=== PATIENT | female | born 1945 | race Caucasian/White ===

== ENCOUNTER 2016-07-16 10:51 | Inpatient (IN) | payer MEDICARE, OTHER ==
[~2016-07-16] VITALS: Ht 167.6 cm; Wt 94.3 kg
[~2016-07-16 10:51] MED LIST: ASPI-496 PO; ATOR40TA78 PO; ATOR80TA75 PO; CETI10TA24 PO; CHOL200024 PO; EMPA10TA PO; INSU100C SQ-INSULIN; INSU100C5 SQ-INSULIN; INSU100V8 SQ; LISI-167 PO; METF1000 PO; METF500T4 PO; METO25TA2 PO; MIRA25TA PO; NAPR220T77 PO; PIOG15TA2 PO; SULF1TAB24 PO
[2016-07-16] MEDS ORDERED: SODIUM CHLORIDE 0.9% 1,000 ML IV ONE (11:24)
[2016-07-16] MEDS ORDERED: SODIUM CHLORIDE 0.9% 1,000ML IVBOLUS ONE ×2 (11:30→14:00)
[2016-07-16] MEDS ORDERED: ACETAMINOPHEN 325 MG TABLET PO ONE (11:30)
[2016-07-16] MEDS ORDERED: CEFTRIAXONE PMX 1GM/50ML 50 ML IVPB ONE (11:30)
[2016-07-16] MEDS ORDERED: ACETAMINOPHEN 325 MG TABLET ONE (12:29)
[2016-07-16] MEDS ORDERED: CEFTRIAXONE PMX 1GM/50ML 50 ML ONE (12:30)
[2016-07-16 12:38] LABS: ASPARTATE AMINO TRANSFERASE 26 U/L (15-37); BLOOD UREA NITROGEN 42 mg/dL (7-18)
[2016-07-16] MEDS ORDERED: ASPI-515 PO (12:41)
[2016-07-16 12:59] LABS: DIFF TOTAL CELLS COUNTED 100 CELL DIFF
[2016-07-16 13:02] LABS: VERIFY COUNTS? YES
[2016-07-16 13:03] LABS: ANISOCYTOSIS 1+; LARGE PLATELETS 1+; POLYCHROMASIA 1+
[2016-07-16 13:57] LABS: ICTOTEST NEGATIVE
[2016-07-16] MEDS ORDERED: ONDANSETRON 2MG/ML, 2ML IVP PRN (15:00)
[2016-07-16] MEDS ORDERED: CETIRIZINE 10 MG TABLET PO PRN (15:00)
[2016-07-16 15:52] VITALS: BP 119/66
[2016-07-16] MEDS: SODIUM CHLORIDE 0.9% 1,000 ML IV SCH (16:19)
[2016-07-16] MEDS ORDERED: INSULIN ASPART 100 UNITS/ML, PEN SQ-INSULIN SCH (17:00)
[2016-07-16] MEDS: HEPARIN 5,000 UNITS/ML, 1ML SQ SCH (17:15)
[2016-07-16] MEDS: PIPERACILLIN/TAZO/PMX 3.375GM 50 ML IV SCH (17:15)
[2016-07-16] MEDS: INSULIN DETEMIR 100 UNITS/ML, PEN SQ-INSULIN SCH ×2 (17:16→21:00)
[2016-07-16] MEDS: INSULIN REGULAR 100 UNITS/ML, 3ML VIAL SQ-INSULIN SCH ×2 (17:17→21:00)
[2016-07-16 20:52] VITALS: BP 126/71
[2016-07-16] MEDS: ATORVASTATIN 80 MG TABLET PO SCH (21:00)
[2016-07-16] MEDS ORDERED: ACETAMINOPHEN 650 MG SUPP PR PRN (22:30)
[2016-07-17] MEDS ORDERED: CEFTRIAXONE PMX 1GM/50ML 50 ML IV SCH (00:30)
[2016-07-17] MEDS: PIPERACILLIN/TAZO/PMX 3.375GM 50 ML IV SCH ×4 (00:32→18:19)
[2016-07-17] MEDS: SODIUM CHLORIDE 0.9% 1,000 ML IV SCH ×2 (00:33→15:18)
[2016-07-17] MEDS: HEPARIN 5,000 UNITS/ML, 1ML SQ SCH ×4 (00:33→22:51)
[2016-07-17 01:00] VITALS: BP 122/75
[2016-07-17 05:27] LABS: HEMOGLOBIN 8.4 g/dL (11.7-16.4)
[2016-07-17 05:30] LABS: ASPARTATE AMINO TRANSFERASE 40 U/L (15-37); BLOOD UREA NITROGEN 31 mg/dL (7-18)
[2016-07-17 06:01] LABS: DIFF TOTAL CELLS COUNTED 100 CELL DIFF
[2016-07-17 06:03] LABS: ANISOCYTOSIS 1+; OVALOCYTES 1+
[2016-07-17 06:04] LABS: LARGE PLATELETS 1+; VERIFY COUNTS? YES
[2016-07-17 08:11] VITALS: BP 110/70
[2016-07-17] MEDS: ASPIRIN 81 MG TABLET EC PO SCH (08:29)
[2016-07-17] MEDS: INSULIN REGULAR 100 UNITS/ML, 3ML VIAL SQ-INSULIN SCH ×4 (08:29→20:33)
[2016-07-17] MEDS: TEMPLATE NON-FORMULARY MED. (Mirabegron** (Myrbetriq**) 25 MG) PO SCH (08:30)
[2016-07-17] MEDS: FLUCONAZOLE 200 MG/100 ML 100 ML IV SCH (15:18)
[2016-07-17 15:19] VITALS: BP 99/60
[2016-07-17] MEDS: ACETAMINOPHEN 325 MG TABLET PO PRN (16:06)
[2016-07-17 19:13] VITALS: BP 102/64
[2016-07-17] MEDS: ATORVASTATIN 80 MG TABLET PO SCH (20:35)
[2016-07-18] MEDS: SODIUM CHLORIDE 0.9% 1,000 ML IV SCH ×3 (00:36→22:59)
[2016-07-18] MEDS: PIPERACILLIN/TAZO/PMX 3.375GM 50 ML IV SCH ×2 (00:36→06:14)
[2016-07-18 02:51] VITALS: BP 135/76
[2016-07-18 05:27] LABS: HEMOGLOBIN 8.8 g/dL (11.7-16.4)
[2016-07-18 05:48] LABS: BLOOD UREA NITROGEN 30 mg/dL (7-18)
[2016-07-18 05:58] LABS: DIFF TOTAL CELLS COUNTED 100 CELL DIFF
[2016-07-18 06:01] LABS: ANISOCYTOSIS 1+; LARGE PLATELETS 1+; VERIFY COUNTS? YES
[2016-07-18] MEDS: INSULIN REGULAR 100 UNITS/ML, 3ML VIAL SQ-INSULIN SCH ×4 (07:00→20:06)
[2016-07-18 07:06] VITALS: BP 120/73
[2016-07-18] MEDS: TEMPLATE NON-FORMULARY MED. (Mirabegron** (Myrbetriq**) 25 MG) PO SCH (08:09)
[2016-07-18] MEDS: HEPARIN 5,000 UNITS/ML, 1ML SQ SCH ×3 (08:09→22:59)
[2016-07-18] MEDS: ASPIRIN 81 MG TABLET EC PO SCH (08:09)
[2016-07-18] MEDS ORDERED: AMPICILLIN/SULBACTAM 3 GM in SODIUM CHLORIDE 0.9% 100 ML IV SCH (08:30)
[2016-07-18] MEDS ORDERED: MAGNESIUM HYDROXIDE 8%, 30ML UDC PO ONE (10:30)
[2016-07-18] MEDS: SENNA/DOCUSATE TABLET PO SCH (10:54)
[2016-07-18] MEDS: ACETAMINOPHEN 325 MG TABLET PO PRN (11:15)
[2016-07-18 12:49] VITALS: BP 104/64
[2016-07-18] MEDS: FLUCONAZOLE 200 MG/100 ML 100 ML IV SCH (15:25)
[2016-07-18] MEDS: AMPICILLIN/SULBACTAM 3 GM in SODIUM CHLORIDE 0.9% 100 ML IV SCH (18:47)
[2016-07-18 19:12] VITALS: BP 114/64
[2016-07-18] MEDS: ATORVASTATIN 80 MG TABLET PO SCH (20:05)
[2016-07-19] VITALS (7 sets, daily range): BP systolic 113–182; BP diastolic 68–88
[2016-07-19] MEDS: AMPICILLIN/SULBACTAM 3 GM in SODIUM CHLORIDE 0.9% 100 ML IV SCH ×2 (06:04→17:55)
[2016-07-19] MEDS: ACETAMINOPHEN 325 MG TABLET PO PRN (08:02)
[2016-07-19] MEDS: SENNA/DOCUSATE TABLET PO SCH (08:02)
[2016-07-19] MEDS: HEPARIN 5,000 UNITS/ML, 1ML SQ SCH ×2 (08:02→16:24)
[2016-07-19] MEDS: ASPIRIN 81 MG TABLET EC PO SCH (08:02)
[2016-07-19] MEDS: TEMPLATE NON-FORMULARY MED. (Mirabegron** (Myrbetriq**) 25 MG) PO SCH (08:20)
[2016-07-19] MEDS: INSULIN REGULAR 100 UNITS/ML, 3ML VIAL SQ-INSULIN SCH ×4 (08:20→20:19)
[2016-07-19 10:02] LABS: BLOOD UREA NITROGEN 21 mg/dL (7-18)
[2016-07-19 10:17] LABS: HEMOGLOBIN 7.6 g/dL (11.7-16.4)
[2016-07-19] MEDS: SODIUM CHLORIDE 0.9% 1,000 ML IV SCH (10:31)
[2016-07-19 11:43] LABS: DIFF TOTAL CELLS COUNTED 100 CELL DIFF
[2016-07-19 11:48] LABS: ANISOCYTOSIS 1+; VERIFY COUNTS? YES
[2016-07-19 11:49] LABS: HYPOCHROMIA 1+
[2016-07-19] MEDS: FLUCONAZOLE 200 MG/100 ML 100 ML IV SCH (16:24)
[2016-07-19] MEDS: METOPROLOL TARTRATE 25 MG TABLET PO SCH (17:55)
[2016-07-19] MEDS: methylPREDNISolone SOD SUCC 125 MG/2 ML IVPush SCH (17:55)
[2016-07-19] MEDS: ATORVASTATIN 80 MG TABLET PO SCH (20:19)
[2016-07-20] MEDS: methylPREDNISolone SOD SUCC 125 MG/2 ML IVPush SCH ×2 (00:51→08:13)
[2016-07-20] MEDS: HEPARIN 5,000 UNITS/ML, 1ML SQ SCH ×3 (00:51→16:36)
[2016-07-20 03:16] VITALS: BP 133/88
[2016-07-20 05:35] LABS: HEMOGLOBIN 8.1 g/dL (11.7-16.4)
[2016-07-20 05:51] LABS: BLOOD UREA NITROGEN 22 mg/dL (7-18)
[2016-07-20 05:57] LABS: DIFF TOTAL CELLS COUNTED 100 CELL DIFF
[2016-07-20 05:59] LABS: ANISOCYTOSIS 1+; VERIFY COUNTS? YES
[2016-07-20] MEDS: AMPICILLIN/SULBACTAM 3 GM in SODIUM CHLORIDE 0.9% 100 ML IV SCH ×2 (06:20→17:52)
[2016-07-20] MEDS: METOPROLOL TARTRATE 25 MG TABLET PO SCH ×2 (06:20→17:52)
[2016-07-20 07:41] VITALS: BP 137/80
[2016-07-20] MEDS: TEMPLATE NON-FORMULARY MED. (Mirabegron** (Myrbetriq**) 25 MG) PO SCH (08:11)
[2016-07-20] MEDS: SENNA/DOCUSATE TABLET PO SCH (08:13)
[2016-07-20] MEDS: ASPIRIN 81 MG TABLET EC PO SCH (08:13)
[2016-07-20] MEDS: INSULIN REGULAR 100 UNITS/ML, 3ML VIAL SQ-INSULIN SCH ×5 (08:44→21:15)
[2016-07-20] MEDS ORDERED: INSULIN ASPART 100 UNITS/ML, PEN SQ-INSULIN SCH (11:30)
[2016-07-20 13:52] VITALS: BP 135/70
[2016-07-20] MEDS: IRON SUCROSE COMPLEX 100MG/5ML IV SCH (15:21)
[2016-07-20] MEDS: FLUCONAZOLE 200 MG/100 ML 100 ML IV SCH (16:36)
[2016-07-20 19:49] VITALS: BP 132/71
[2016-07-20] MEDS: ATORVASTATIN 80 MG TABLET PO SCH (21:11)
[2016-07-20] MEDS: INSULIN DETEMIR 100 UNITS/ML, PEN SQ-INSULIN SCH (21:12)
[2016-07-21 02:30] VITALS: BP 139/70
[2016-07-21 05:42] LABS: HEMOGLOBIN 8.6 g/dL (11.7-16.4)
[2016-07-21 05:54] LABS: DIFF TOTAL CELLS COUNTED 100 CELL DIFF
[2016-07-21 05:56] LABS: ANISOCYTOSIS 1+
[2016-07-21 05:57] LABS: VERIFY COUNTS? YES
[2016-07-21 06:01] LABS: BLOOD UREA NITROGEN 26 mg/dL (7-18)
[2016-07-21] MEDS: METOPROLOL TARTRATE 25 MG TABLET PO SCH ×2 (06:23→17:02)
[2016-07-21] MEDS: AMPICILLIN/SULBACTAM 3 GM in SODIUM CHLORIDE 0.9% 100 ML IV SCH (06:23)
[2016-07-21 07:12] VITALS: BP 135/70
[2016-07-21] MEDS: SENNA/DOCUSATE TABLET PO SCH (07:39)
[2016-07-21] MEDS: predniSONE 50MG TABLET PO SCH (07:43)
[2016-07-21] MEDS: HEPARIN 5,000 UNITS/ML, 1ML SQ SCH ×3 (07:46→15:44)
[2016-07-21] MEDS: INSULIN REGULAR 100 UNITS/ML, 3ML VIAL SQ-INSULIN SCH ×4 (07:53→19:50)
[2016-07-21] MEDS: TEMPLATE NON-FORMULARY MED. (Mirabegron** (Myrbetriq**) 25 MG) PO SCH (09:00)
[2016-07-21] MEDS: ASPIRIN 81 MG TABLET EC PO SCH (09:47)
[2016-07-21] MEDS: FLUCONAZOLE 400 MG/200 ML 200 ML IV SCH (11:28)
[2016-07-21 13:13] VITALS: BP 134/93
[2016-07-21] MEDS: IRON SUCROSE COMPLEX 100MG/5ML IV SCH (15:44)
[2016-07-21 19:33] VITALS: BP 125/64
[2016-07-21] MEDS: ATORVASTATIN 80 MG TABLET PO SCH (19:49)
[2016-07-21] MEDS: INSULIN DETEMIR 100 UNITS/ML, PEN SQ-INSULIN SCH (19:50)
[2016-07-22 00:48] VITALS: BP 143/67
[2016-07-22 05:41] LABS: BLOOD UREA NITROGEN 32 mg/dL (7-18)
[2016-07-22 05:48] LABS: HEMOGLOBIN 7.8 g/dL (11.7-16.4)
[2016-07-22] MEDS: METOPROLOL TARTRATE 25 MG TABLET PO SCH ×2 (06:11→16:54)
[2016-07-22 06:20] LABS: DIFF TOTAL CELLS COUNTED 100 CELL DIFF
[2016-07-22 06:23] LABS: VERIFY COUNTS? YES
[2016-07-22 06:24] LABS: ANISOCYTOSIS 1+
[2016-07-22 07:01] VITALS: BP 134/64
[2016-07-22] MEDS: INSULIN REGULAR 100 UNITS/ML, 3ML VIAL SQ-INSULIN SCH ×4 (07:54→21:18)
[2016-07-22] MEDS: HEPARIN 5,000 UNITS/ML, 1ML SQ SCH ×4 (07:55→21:13)
[2016-07-22] MEDS: predniSONE 50MG TABLET PO SCH (07:57)
[2016-07-22] MEDS: SENNA/DOCUSATE TABLET PO SCH (08:02)
[2016-07-22] MEDS: ASPIRIN 81 MG TABLET EC PO SCH (08:03)
[2016-07-22] MEDS: TEMPLATE NON-FORMULARY MED. (Mirabegron** (Myrbetriq**) 25 MG) PO SCH (08:04)
[2016-07-22] MEDS: IRON SUCROSE COMPLEX 100MG/5ML IV SCH (09:49)
[2016-07-22] MEDS: FLUCONAZOLE 400 MG/200 ML 200 ML IV SCH (10:57)
[2016-07-22] MEDS ORDERED: MAGNESIUM HYDROXIDE 8%, 30ML UDC PO ONE (12:30)
[2016-07-22 12:57] VITALS: BP 168/75
[2016-07-22 18:39] LABS: POTASSIUM,URINE RANDOM 7 mmol/L
[2016-07-22 19:23] VITALS: BP 146/80
[2016-07-22] MEDS: ATORVASTATIN 80 MG TABLET PO SCH (21:13)
[2016-07-22] MEDS: INSULIN DETEMIR 100 UNITS/ML, PEN SQ-INSULIN SCH (21:14)
[2016-07-23 00:52] VITALS: BP 170/74
[2016-07-23] MEDS ORDERED: LABETALOL 5MG/ML, 20ML IVPush ONE (01:30)
[2016-07-23] MEDS: METOPROLOL TARTRATE 25 MG TABLET PO SCH ×2 (05:55→17:36)
[2016-07-23] MEDS: HEPARIN 5,000 UNITS/ML, 1ML SQ SCH ×3 (05:56→21:32)
[2016-07-23 07:08] VITALS: BP 151/70
[2016-07-23] MEDS: IRON SUCROSE COMPLEX 100MG/5ML IV SCH (08:32)
[2016-07-23] MEDS: SENNA/DOCUSATE TABLET PO SCH (08:32)
[2016-07-23] MEDS: ASPIRIN 81 MG TABLET EC PO SCH (08:32)
[2016-07-23] MEDS: INSULIN REGULAR 100 UNITS/ML, 3ML VIAL SQ-INSULIN SCH ×4 (08:34→20:39)
[2016-07-23] MEDS: ACETAMINOPHEN 325 MG TABLET PO PRN (08:39)
[2016-07-23] MEDS: TEMPLATE NON-FORMULARY MED. (Mirabegron** (Myrbetriq**) 25 MG) PO SCH (08:42)
[2016-07-23] MEDS ORDERED: LISINOPRIL 10 MG TABLET PO SCH (09:00)
[2016-07-23] MEDS: FLUCONAZOLE 400 MG/200 ML 200 ML IV SCH (11:19)
[2016-07-23 12:54] VITALS: BP 154/78
[2016-07-23 17:06] VITALS: BP 161/75
[2016-07-23 19:44] VITALS: BP 162/78
[2016-07-23] MEDS: ATORVASTATIN 80 MG TABLET PO SCH (20:04)
[2016-07-23] MEDS: INSULIN DETEMIR 100 UNITS/ML, PEN SQ-INSULIN SCH (20:39)
[2016-07-24 04:36] VITALS: BP 152/78
[2016-07-24] MEDS: METOPROLOL TARTRATE 25 MG TABLET PO SCH ×2 (06:45→20:03)
[2016-07-24] MEDS: HEPARIN 5,000 UNITS/ML, 1ML SQ SCH ×3 (06:45→21:31)
[2016-07-24 07:50] VITALS: BP 160/68
[2016-07-24] MEDS: ASPIRIN 81 MG TABLET EC PO SCH (08:44)
[2016-07-24] MEDS: SENNA/DOCUSATE TABLET PO SCH (08:44)
[2016-07-24] MEDS: IRON SUCROSE COMPLEX 100MG/5ML IV SCH (08:44)
[2016-07-24] MEDS: INSULIN REGULAR 100 UNITS/ML, 3ML VIAL SQ-INSULIN SCH ×4 (08:46→20:10)
[2016-07-24] MEDS: TEMPLATE NON-FORMULARY MED. (Mirabegron** (Myrbetriq**) 25 MG) PO SCH (08:48)
[2016-07-24] MEDS: LISINOPRIL 20 MG TABLET PO SCH (08:53)
[2016-07-24] MEDS: FLUCONAZOLE 400 MG/200 ML 200 ML IV SCH (10:46)
[2016-07-24 15:17] VITALS: BP 167/78
[2016-07-24] MEDS: ACETAMINOPHEN 325 MG TABLET PO PRN (16:35)
[2016-07-24] MEDS: ATORVASTATIN 80 MG TABLET PO SCH (20:03)
[2016-07-24] MEDS: INSULIN DETEMIR 100 UNITS/ML, PEN SQ-INSULIN SCH (20:10)
[2016-07-24 20:21] VITALS: BP 150/72
[2016-07-25] VITALS (9 sets, daily range): BP systolic 123–159; BP diastolic 62–78
[2016-07-25 05:29] LABS: HEMOGLOBIN 7.1 g/dL (11.7-16.4)
[2016-07-25 05:32] LABS: BLOOD UREA NITROGEN 31 mg/dL (7-18)
[2016-07-25] MEDS: HEPARIN 5,000 UNITS/ML, 1ML SQ SCH ×3 (06:00→22:00)
[2016-07-25] MEDS: METOPROLOL TARTRATE 25 MG TABLET PO SCH ×3 (06:47→22:46)
[2016-07-25] MEDS ORDERED: FUROSEMIDE 20 MG/2 ML IV ONE (07:30)
[2016-07-25] MEDS: INSULIN REGULAR 100 UNITS/ML, 3ML VIAL SQ-INSULIN SCH ×4 (07:57→22:46)
[2016-07-25] MEDS: ASPIRIN 81 MG TABLET EC PO SCH (07:58)
[2016-07-25] MEDS: TEMPLATE NON-FORMULARY MED. (Mirabegron** (Myrbetriq**) 25 MG) PO SCH (07:58)
[2016-07-25] MEDS: SENNA/DOCUSATE TABLET PO SCH (07:59)
[2016-07-25] MEDS: LISINOPRIL 20 MG TABLET PO SCH (07:59)
[2016-07-25] MEDS: ACETAMINOPHEN 325 MG TABLET PO PRN (07:59)
[2016-07-25] MEDS ORDERED: FUROSEMIDE 20 MG/2 ML ONE (12:56)
[2016-07-25] MEDS: FLUCONAZOLE 200 MG TABLET PO SCH (12:58)
[2016-07-25 17:53] LABS: HEMOGLOBIN 10.1 g/dL (11.7-16.4)
[2016-07-25 18:01] LABS: ASPARTATE AMINO TRANSFERASE 33 U/L (15-37); BLOOD UREA NITROGEN 30 mg/dL (7-18)
[2016-07-25 18:11] LABS: DIFF TOTAL CELLS COUNTED 100 CELL DIFF
[2016-07-25 18:12] LABS: VERIFY COUNTS? YES
[2016-07-25] MEDS: INSULIN DETEMIR 100 UNITS/ML, PEN SQ-INSULIN SCH (21:00)
[2016-07-25] MEDS ORDERED: PNEUMOC 13-VALENT VACC, 0.5 ML IM-VACC ONE (22:30)
[2016-07-25] MEDS: ATORVASTATIN 80 MG TABLET PO SCH (22:46)
[2016-07-26 02:45] VITALS: BP 98/61
[2016-07-26 06:38] LABS: BLOOD UREA NITROGEN 30 mg/dL (7-18)
[2016-07-26 06:51] LABS: ASPARTATE AMINO TRANSFERASE 26 U/L (15-37)
[2016-07-26 06:55] LABS: C-REACTIVE PROTEIN, QUANT > 19.00 mg/dL (0.02-0.49)
[2016-07-26] MEDS: INSULIN REGULAR 100 UNITS/ML, 3ML VIAL SQ-INSULIN SCH ×4 (07:00→21:58)
[2016-07-26 07:28] VITALS: BP 138/77
[2016-07-26 07:46] LABS: HEMOGLOBIN 8.2 g/dL (11.7-16.4)
[2016-07-26] MEDS ORDERED: FENTANYL PF 250 MCG/5ML ONE (08:24)
[2016-07-26] MEDS ORDERED: MIDAZOLAM 1 MG/ML, 2ML ONE (08:24)
[2016-07-26] MEDS ORDERED: ONDANSETRON 2MG/ML, 2ML ONE (08:47)
[2016-07-26] MEDS ORDERED: METOCLOPRAMIDE 5 MG/ML, 2ML ONE (08:47)
[2016-07-26] MEDS ORDERED: PROPOFOL 10 MG/ML, 20ML ONE (08:47)
[2016-07-26] MEDS: FLUCONAZOLE 200 MG TABLET PO SCH ×2 (09:00→13:07)
[2016-07-26] MEDS: TEMPLATE NON-FORMULARY MED. (Mirabegron** (Myrbetriq**) 25 MG) PO SCH (09:00)
[2016-07-26] MEDS: SENNA/DOCUSATE TABLET PO SCH (09:00)
[2016-07-26] MEDS ORDERED: LABETALOL 5MG/ML, 20ML IV PRN (09:30)
[2016-07-26] MEDS ORDERED: PROMETHAZINE 25 MG/ML, 1ML IV PRN (09:30)
[2016-07-26] MEDS ORDERED: FENTANYL PF 100 MCG/2ML IV PRN (09:30)
[2016-07-26] MEDS ORDERED: OXYcodone 5 MG/5 ML ORAL.SOL UDC PO PRN (09:30)
[2016-07-26] MEDS ORDERED: ACETAMINOPHEN 325 MG TABLET PO PRN (09:30)
[2016-07-26] MEDS ORDERED: ONDANSETRON 2MG/ML, 2ML IVPush PRN (09:30)
[2016-07-26] MEDS ORDERED: MEPERIDINE/PF 25MG/0.5ML IVPush PRN (09:30)
[2016-07-26] MEDS ORDERED: HYDROmorphone 1 MG/ML, 1ML IV PRN (09:30)
[2016-07-26] MEDS ORDERED: hydrALAzine 20 MG/ML, 1ML IV PRN (09:30)
[2016-07-26 10:38] VITALS: BP 125/73
[2016-07-26] MEDS ORDERED: INSULIN REGULAR 100 UNITS/ML, 3ML VIAL SQ-INSULIN SCH (11:00)
[2016-07-26 11:13] VITALS: BP 120/73
[2016-07-26] MEDS: LISINOPRIL 20 MG TABLET PO SCH (12:49)
[2016-07-26] MEDS: METOPROLOL TARTRATE 25 MG TABLET PO SCH ×2 (12:50→17:34)
[2016-07-26] MEDS: ASPIRIN 81 MG TABLET EC PO SCH (12:50)
[2016-07-26 13:57] VITALS: BP 113/69
[2016-07-26 20:20] VITALS: BP 128/69
[2016-07-26] MEDS: INSULIN DETEMIR 100 UNITS/ML, PEN SQ-INSULIN SCH (21:54)
[2016-07-26] MEDS: ATORVASTATIN 80 MG TABLET PO SCH (21:58)
[2016-07-27 03:10] VITALS: BP 126/55
[2016-07-27] MEDS: METOPROLOL TARTRATE 25 MG TABLET PO SCH ×2 (06:26→17:22)
[2016-07-27 06:31] LABS: HEMOGLOBIN 7.6 g/dL (11.7-16.4)
[2016-07-27 06:36] LABS: ASPARTATE AMINO TRANSFERASE 25 U/L (15-37); BLOOD UREA NITROGEN 22 mg/dL (7-18)
[2016-07-27] MEDS: INSULIN REGULAR 100 UNITS/ML, 3ML VIAL SQ-INSULIN SCH ×4 (07:00→20:57)
[2016-07-27] MEDS ORDERED: MAGNESIUM SULFATE PMX 2GM/50ML 50 ML IV ONE (08:00)
[2016-07-27 08:20] VITALS: BP 123/58
[2016-07-27] MEDS: ASPIRIN 81 MG TABLET EC PO SCH (08:45)
[2016-07-27] MEDS: SENNA/DOCUSATE TABLET PO SCH (08:45)
[2016-07-27] MEDS: FLUCONAZOLE 200 MG TABLET PO SCH (08:45)
[2016-07-27] MEDS: LISINOPRIL 20 MG TABLET PO SCH (08:45)
[2016-07-27] MEDS: TEMPLATE NON-FORMULARY MED. (Mirabegron** (Myrbetriq**) 25 MG) PO SCH (08:46)
[2016-07-27] MEDS ORDERED: LIDOCAINE-MPF 2% ,5ML ONE (10:27)
[2016-07-27 14:50] VITALS: BP 151/83
[2016-07-27 16:21] VITALS: BP 155/77
[2016-07-27 19:19] VITALS: BP 161/82
[2016-07-27] MEDS: INSULIN DETEMIR 100 UNITS/ML, PEN SQ-INSULIN SCH (20:56)
[2016-07-27] MEDS: ATORVASTATIN 80 MG TABLET PO SCH (20:57)
[2016-07-27] MEDS: MORPHINE SULFATE 4 MG/ML, 1ML IVPush PRN (22:06)
[2016-07-28 01:56] VITALS: BP 142/68
[2016-07-28 05:20] LABS: BLOOD UREA NITROGEN 16 mg/dL (7-18)
[2016-07-28 05:20] LABS: HEMOGLOBIN 7.6 g/dL (11.7-16.4)
[2016-07-28] MEDS: METOPROLOL TARTRATE 25 MG TABLET PO SCH ×2 (05:57→17:41)
[2016-07-28 06:58] VITALS: BP 138/78
[2016-07-28] MEDS: INSULIN REGULAR 100 UNITS/ML, 3ML VIAL SQ-INSULIN SCH ×4 (07:00→21:24)
[2016-07-28] MEDS: SENNA/DOCUSATE TABLET PO SCH (07:47)
[2016-07-28] MEDS: ASPIRIN 81 MG TABLET EC PO SCH (07:47)
[2016-07-28] MEDS: MORPHINE SULFATE 4 MG/ML, 1ML IVPush PRN (07:47)
[2016-07-28] MEDS: LISINOPRIL 20 MG TABLET PO SCH (07:48)
[2016-07-28] MEDS: TEMPLATE NON-FORMULARY MED. (Mirabegron** (Myrbetriq**) 25 MG) PO SCH (07:48)
[2016-07-28] MEDS ORDERED: FLUCONAZOLE 200 MG TABLET PO SCH (09:00)
[2016-07-28 14:03] VITALS: BP 145/77
[2016-07-28 19:03] VITALS: BP 132/66
[2016-07-28] MEDS: ATORVASTATIN 80 MG TABLET PO SCH (20:42)
[2016-07-28] MEDS: INSULIN DETEMIR 100 UNITS/ML, PEN SQ-INSULIN SCH (21:25)
[2016-07-29] MEDS: MORPHINE SULFATE 4 MG/ML, 1ML IVPush PRN ×2 (01:23→11:43)
[2016-07-29 01:33] VITALS: BP 154/70
[2016-07-29 05:54] LABS: HEMOGLOBIN 7.3 g/dL (11.7-16.4)
[2016-07-29 06:03] LABS: ASPARTATE AMINO TRANSFERASE 24 U/L (15-37); BLOOD UREA NITROGEN 14 mg/dL (7-18)
[2016-07-29 06:30] VITALS: BP 147/75
[2016-07-29] MEDS: METOPROLOL TARTRATE 25 MG TABLET PO SCH ×2 (06:34→17:59)
[2016-07-29] MEDS: INSULIN REGULAR 100 UNITS/ML, 3ML VIAL SQ-INSULIN SCH ×4 (07:31→20:36)
[2016-07-29] MEDS: ASPIRIN 81 MG TABLET EC PO SCH (09:15)
[2016-07-29] MEDS: LISINOPRIL 20 MG TABLET PO SCH (09:16)
[2016-07-29] MEDS: TEMPLATE NON-FORMULARY MED. (Mirabegron** (Myrbetriq**) 25 MG) PO SCH (09:16)
[2016-07-29] MEDS: SENNA/DOCUSATE TABLET PO SCH (09:16)
[2016-07-29] MEDS: FLUCONAZOLE 200 MG TABLET PO SCH (09:16)
[2016-07-29 13:18] VITALS: BP 150/66
[2016-07-29 20:06] VITALS: BP 155/73
[2016-07-29] MEDS: ATORVASTATIN 80 MG TABLET PO SCH (20:22)
[2016-07-29] MEDS: INSULIN DETEMIR 100 UNITS/ML, PEN SQ-INSULIN SCH (20:36)
[2016-07-30 02:19] VITALS: BP 156/77
[2016-07-30] MEDS: MORPHINE SULFATE 4 MG/ML, 1ML IVPush PRN ×2 (03:52→10:22)
[2016-07-30 06:04] LABS: HEMOGLOBIN 7.4 g/dL (11.7-16.4)
[2016-07-30] MEDS: METOPROLOL TARTRATE 25 MG TABLET PO SCH ×2 (06:49→18:04)
[2016-07-30 06:50] VITALS: BP 145/73
[2016-07-30] MEDS: INSULIN REGULAR 100 UNITS/ML, 3ML VIAL SQ-INSULIN SCH ×4 (07:42→20:28)
[2016-07-30] MEDS: FLUCONAZOLE 200 MG TABLET PO SCH (08:29)
[2016-07-30] MEDS: TEMPLATE NON-FORMULARY MED. (Mirabegron** (Myrbetriq**) 25 MG) PO SCH (08:30)
[2016-07-30] MEDS: ASPIRIN 81 MG TABLET EC PO SCH (08:30)
[2016-07-30] MEDS: LISINOPRIL 20 MG TABLET PO SCH (08:30)
[2016-07-30] MEDS: SENNA/DOCUSATE TABLET PO SCH (08:30)
[2016-07-30 13:27] VITALS: BP 145/84
[2016-07-30 20:01] VITALS: BP 155/76
[2016-07-30] MEDS: ATORVASTATIN 80 MG TABLET PO SCH (20:19)
[2016-07-30] MEDS: INSULIN DETEMIR 100 UNITS/ML, PEN SQ-INSULIN SCH (20:28)
[2016-07-31 01:26] VITALS: BP 149/75
[2016-07-31] MEDS: MORPHINE SULFATE 4 MG/ML, 1ML IVPush PRN (02:20)
[2016-07-31] MEDS: METOPROLOL TARTRATE 25 MG TABLET PO SCH (05:39)
[2016-07-31 06:07] LABS: HEMOGLOBIN 7.9 g/dL (11.7-16.4)
[2016-07-31 06:43] LABS: BLOOD UREA NITROGEN 14 mg/dL (7-18)
[2016-07-31] MEDS: INSULIN REGULAR 100 UNITS/ML, 3ML VIAL SQ-INSULIN SCH ×3 (08:22→17:01)
[2016-07-31] MEDS: TEMPLATE NON-FORMULARY MED. (Mirabegron** (Myrbetriq**) 25 MG) PO SCH (08:22)
[2016-07-31 08:23] VITALS: BP 148/94
[2016-07-31] MEDS: SENNA/DOCUSATE TABLET PO SCH (08:23)
[2016-07-31] MEDS: FLUCONAZOLE 200 MG TABLET PO SCH (08:23)
[2016-07-31] MEDS: LISINOPRIL 20 MG TABLET PO SCH (08:23)
[2016-07-31] MEDS: ASPIRIN 81 MG TABLET EC PO SCH (08:23)
[2016-07-31] MEDS ORDERED: LISI-170 PO (13:18)
[2016-07-31] MEDS ORDERED: ASPI-621 PO (13:18)
[2016-07-31] MEDS ORDERED: FLUC200T PO (13:18)
[2016-07-31 16:18] VITALS: BP 151/76
[2016-08-04] MEDS ORDERED: FLUC200T4 PO (10:15)
[2016-08-04] MEDS ORDERED: LISI-170 PO (10:15)
== END 2016-07-31 18:45 | DRG 871 ==
LOC: ED 12:50 → EDIP 14:43 → 3NE 15:48 → 5SO 07-25 18:30 → 3NE 07-27 16:12
PROVIDERS: ADMIT Hospitalist; ATTEND Hospitalist
PROC: 0T9B70Z Drainage of Bladder with Drainage Device, Via Natural or Artificial Opening (ICD-10-PCS; 2016-07-16)
PROC: 30233N1 Transfusion of Nonautologous Red Blood Cells into Peripheral Vein, Percutaneous Approach (ICD-10-PCS; 2016-07-25)
PROC: 0T768DZ Dilation of Right Ureter with Intraluminal Device, Via Natural or Artificial Opening Endoscopic (ICD-10-PCS; principal; 2016-07-26 08:30)
DX: B37.7 Candidal sepsis (principal); G93.41 Metabolic encephalopathy; N10 Acute pyelonephritis; E87.1 Hypo-osmolality and hyponatremia; E87.2 Acidosis; N13.6 Pyonephrosis; N20.1 Calculus of ureter; B49 Unspecified mycosis; N20.2 Calculus of kidney with calculus of ureter; N17.9 Acute kidney failure, unspecified; N12 Tubulo-interstitial nephritis, not specified as acute or chronic; D62 Acute posthemorrhagic anemia; B37.49 Other urogenital candidiasis; I10 Essential (primary) hypertension; E78.5 Hyperlipidemia, unspecified; D50.9 Iron deficiency anemia, unspecified; R32 Unspecified urinary incontinence; N20.0 Calculus of kidney; E11.65 Type 2 diabetes mellitus with hyperglycemia; R63.0 Anorexia; R65.20 Severe sepsis without septic shock; I25.10 Atherosclerotic heart disease of native coronary artery without angina pectoris; Z96.659 Presence of unspecified artificial knee joint; G89.29 Other chronic pain; M19.90 Unspecified osteoarthritis, unspecified site; J30.2 Other seasonal allergic rhinitis; S20.211A Contusion of right front wall of thorax, initial encounter; D53.9 Nutritional anemia, unspecified; I27.2 Other secondary pulmonary hypertension; Z90.710 Acquired absence of both cervix and uterus; Z79.4 Long term (current) use of insulin
CPT/HCPCS: 36415; 70450; 71010; 71250; 74000; 74176; 76000; 76770; 80048; 80053; 80061; 80076; 81001; 82436; 82570; 82728; 82962; 83036; 83540; 83550; 83605; 83735; 84100; 84133; 84145; 84300; 84439; 84443; 85025; 85045; 85610; 85651; 85730; 86078; 86140; 86850; 86900; 86923; 87040; 87086; 87106; 87186; 93005; 93306; 96365; 96366; J0295; J0696; J1450; J1644; J1756; J1815; J2250; J2405; J2543; J2704; J3010; J3490; C1769; C2617; J1940; J2765; J2930; J3475; J7030; J7512; P9016

== ENCOUNTER 2016-12-19 08:53 | Inpatient (IN) | payer MEDICARE, OTHER ==
[~2016-12-19] VITALS: Ht 167.6 cm; Wt 72.9 kg
[~2016-12-19 08:53] MED LIST changes: +ASPI-515 PO; +ASPI-621 PO; +CEPH-368 PO; +FLUC200T PO; +FLUC200T4 PO; +LISI-170 PO
[2016-12-19] MEDS ORDERED: ACETAMINOPHEN 500 MG TABLET PO ONE (09:30)
[2016-12-19] MEDS ORDERED: SODIUM CHLORIDE 0.9% 1,000ML IVBOLUS ONE ×3 (09:30→23:30)
[2016-12-19] MEDS ORDERED: CEFTRIAXONE PMX 1GM/50ML 50 ML IVPB ONE (09:30)
[2016-12-19 09:57] LABS: HEMATOCRIT 26.4 % (34.6-47.8); HEMOGLOBIN 8.8 g/dL (11.7-16.4); WHITE BLOOD COUNT 15.3 x10^3/uL (3.4-10)
[2016-12-19 09:58] LABS: PH, VENOUS 7.295 pH (7.320-7.420)
[2016-12-19 10:02] LABS: FIO2 ROOM AIR %
[2016-12-19 10:10] LABS: BLOOD UREA NITROGEN 38 mg/dL (7-18)
[2016-12-19 10:20] LABS: ASPARTATE AMINO TRANSFERASE 5 U/L (15-37)
[2016-12-19] MEDS ORDERED: CEFTRIAXONE PMX 1GM/50ML 50 ML ONE (10:23)
[2016-12-19] MEDS ORDERED: REGULAR INSULIN 62.5 UNITS in SODIUM CHLORIDE 0.9% 249.375 ML IV PRN (10:26)
[2016-12-19] MEDS ORDERED: ACETAMINOPHEN 500 MG TABLET ONE (10:31)
[2016-12-19] MEDS ORDERED: SODIUM CHLORIDE 0.9%, 500ML IVBOLUS ONE (11:30)
[2016-12-19] MEDS ORDERED: SODIUM CHLORIDE 0.9% 1,000 ML IV ONE (12:30)
[2016-12-19] MEDS ORDERED: INSULIN REGULAR 100 UNITS/ML, 3ML VIAL IVPush ONE (12:30)
[2016-12-19] MEDS ORDERED: MIRA25TA PO (12:51)
[2016-12-19] MEDS ORDERED: METF500T4 PO (12:51)
[2016-12-19 14:00] VITALS: BP 90/55
[2016-12-19] MEDS ORDERED: DEXTROSE 4 GM TAB.CHEW PO PRN (15:00)
[2016-12-19] MEDS ORDERED: GLUCAGON 1 MG IM PRN (15:00)
[2016-12-19] MEDS ORDERED: DEXTROSE 50%, 50ML SYRINGE IVPush PRN (15:00)
[2016-12-19] MEDS ORDERED: SODIUM CHLORIDE 0.9% 1,000 ML IV SCH (15:19)
[2016-12-19] MEDS ORDERED: BISACODYL 10 MG SUPP PR PRN (15:30)
[2016-12-19] MEDS ORDERED: DOCUSATE 100 MG CAPSULE PO PRN (15:30)
[2016-12-19] MEDS ORDERED: POLYETHYLENE GLYCOL 17 GM PACKET PO PRN (15:30)
[2016-12-19 15:39] VITALS: BP 117/81
[2016-12-19] MEDS ORDERED: CEFTRIAXONE PMX 1GM/50ML 50 ML IV SCH (16:00)
[2016-12-19] MEDS ORDERED: VANCOMYCIN PER PHARMACY MC PRN ×2 (16:00→16:30)
[2016-12-19] MEDS ORDERED: PIPERACILLIN/TAZO/PMX 3.375GM 50 ML IV SCH (16:00)
[2016-12-19] MEDS ORDERED: CEFTAROLINE 400 MG in SODIUM CHLORIDE 0.9% 100 ML IV SCH (16:00)
[2016-12-19] MEDS: INSULIN ASPART 100 UNITS/ML, PEN SQ-INSULIN SCH ×3 (16:22→23:26)
[2016-12-19] MEDS: HEPARIN 5,000 UNITS/ML, 1ML SQ SCH (16:23)
[2016-12-19 16:27] LABS: IS PT STATUS REG ER OR PRE ER? NO
[2016-12-19] MEDS ORDERED: PHARMACOKINETIC CONSULTATION MC ONE (17:00)
[2016-12-19] MEDS ORDERED: VANCOMYCIN PMX 1GM/200ML 200 ML IVPB SCH ×2 (17:00)
[2016-12-19] MEDS ORDERED: PHARMACOKINETIC MONITORING MC PRN (17:00)
[2016-12-19 17:40] VITALS: BP 152/84
[2016-12-19] MEDS ORDERED: ACETAMINOPHEN 650 MG SUPP ONE (18:36)
[2016-12-19] MEDS ORDERED: ONDANSETRON 2MG/ML, 2ML ONE (18:53)
[2016-12-19] MEDS ORDERED: ACETAMINOPHEN 650 MG SUPP PR ONE (19:00)
[2016-12-19] MEDS ORDERED: ONDANSETRON 2MG/ML, 2ML IVPush PRN (19:00)
[2016-12-19 19:32] LABS: BLOOD UREA NITROGEN 37 mg/dL (7-18)
[2016-12-19 19:35] LABS: ASPARTATE AMINO TRANSFERASE 10 U/L (15-37)
[2016-12-19 19:45] LABS: HEMATOCRIT 25.6 % (34.6-47.8); HEMOGLOBIN 8.4 g/dL (11.7-16.4); WHITE BLOOD COUNT 10.6 x10^3/uL (3.4-10)
[2016-12-19 19:46] LABS: DIFF TOTAL CELLS COUNTED 100 CELL DIFF
[2016-12-19] MEDS: PIPERACILLIN/TAZO/PMX 3.375GM 50 ML IV SCH (19:50)
[2016-12-19] MEDS: SODIUM CHLORIDE FLUSH 10ML SYR IVF SCH (19:51)
[2016-12-19 20:14] LABS: ROULEAUX 2+
[2016-12-19 20:15] LABS: VERIFY COUNTS? YES
[2016-12-19 23:29] LABS: BLOOD UREA NITROGEN 37 mg/dL (7-18)
[2016-12-19 23:35] LABS: IS PT STATUS REG ER OR PRE ER? NO
[2016-12-20] MEDS: HEPARIN 5,000 UNITS/ML, 1ML SQ SCH ×4 (00:12→22:32)
[2016-12-20] MEDS: PHENYLEPHRINE 20 MG in SODIUM CHLORIDE 0.9% 248 ML IV PRN ×2 (00:39→06:03)
[2016-12-20] MEDS: INSULIN ASPART 100 UNITS/ML, PEN SQ-INSULIN SCH ×6 (03:22→19:59)
[2016-12-20] MEDS: PIPERACILLIN/TAZO/PMX 3.375GM 50 ML IV SCH ×3 (03:22→19:54)
[2016-12-20] MEDS: SODIUM CHLORIDE 0.9% 1,000 ML IV SCH ×4 (03:23→23:11)
[2016-12-20 04:16] LABS: HEMOGLOBIN 7.3 g/dL (11.7-16.4); WHITE BLOOD COUNT 16.3 x10^3/uL (3.4-10)
[2016-12-20 04:18] LABS: HEMATOCRIT 22.4 % (34.6-47.8)
[2016-12-20 04:28] LABS: ASPARTATE AMINO TRANSFERASE 12 U/L (15-37); BLOOD UREA NITROGEN 29 mg/dL (7-18)
[2016-12-20 04:33] LABS: IS PT STATUS REG ER OR PRE ER? NO
[2016-12-20 06:10] VITALS: BP 123/36
[2016-12-20] MEDS: SODIUM CHLORIDE FLUSH 10ML SYR IVF SCH ×2 (08:32→22:33)
[2016-12-20] MEDS: CHOLECALCIFEROL 1,000 UNIT TABLET PO SCH (08:33)
[2016-12-20] MEDS ORDERED: ASPIRIN 81 MG TABLET EC PO SCH (09:00)
[2016-12-20] MEDS ORDERED: CEFTRIAXONE PMX 1GM/50ML 50 ML IV SCH (10:00)
[2016-12-20] MEDS ORDERED: NOREPINEPHRINE 4 MG in SODIUM CHLORIDE 0.9% 246 ML IV PRN (11:00)
[2016-12-20] MEDS ORDERED: SODIUM CHLORIDE 0.9% 500 ML IV ONE ×2 (11:00→11:19)
[2016-12-20] MEDS ORDERED: SODIUM CHLORIDE 0.9% 1,000 ML IV SCH (15:19)
[2016-12-20] MEDS: ACETAMINOPHEN 325 MG TABLET PO PRN (19:54)
[2016-12-21] MEDS: PIPERACILLIN/TAZO/PMX 3.375GM 50 ML IV SCH (04:02)
[2016-12-21 04:32] LABS: HEMATOCRIT 23.2 % (34.6-47.8); HEMOGLOBIN 7.7 g/dL (11.7-16.4); WHITE BLOOD COUNT 9.9 x10^3/uL (3.4-10)
[2016-12-21 04:42] LABS: BLOOD UREA NITROGEN 22 mg/dL (7-18)
[2016-12-21] MEDS: HEPARIN 5,000 UNITS/ML, 1ML SQ SCH ×3 (05:49→23:03)
[2016-12-21] MEDS: SODIUM CHLORIDE 0.9% 1,000 ML IV SCH ×2 (05:55→18:21)
[2016-12-21 06:00] VITALS: BP 116/52
[2016-12-21] MEDS: CEFTRIAXONE PMX 1GM/50ML 50 ML IV SCH (08:08)
[2016-12-21] MEDS: ASPIRIN 81 MG TABLET EC PO SCH (08:08)
[2016-12-21] MEDS: CHOLECALCIFEROL 1,000 UNIT TABLET PO SCH (08:08)
[2016-12-21] MEDS: INSULIN ASPART 100 UNITS/ML, PEN SQ-INSULIN SCH ×4 (08:09→23:02)
[2016-12-21] MEDS: SODIUM CHLORIDE FLUSH 10ML SYR IVF SCH ×2 (08:09→21:00)
[2016-12-21 15:45] VITALS: BP 142/77
[2016-12-21] MEDS ORDERED: VANCOMYCIN 1,200 MG in SODIUM CHLORIDE 0.9% 250 ML IVPB SCH (17:00)
[2016-12-21 20:17] VITALS: BP 133/66
[2016-12-21] MEDS: ACETAMINOPHEN 325 MG TABLET PO PRN (20:20)
[2016-12-22 01:31] VITALS: BP 136/74
[2016-12-22] MEDS: SODIUM CHLORIDE 0.9% 1,000 ML IV SCH ×3 (04:53→23:23)
[2016-12-22 06:31] LABS: BLOOD UREA NITROGEN 15 mg/dL (7-18)
[2016-12-22] MEDS: HEPARIN 5,000 UNITS/ML, 1ML SQ SCH ×3 (06:55→23:22)
[2016-12-22 07:26] LABS: HEMOGLOBIN 8.8 g/dL (11.7-16.4)
[2016-12-22 07:31] LABS: DIFF TOTAL CELLS COUNTED 100 CELL DIFF; WHITE BLOOD COUNT 9.2 x10^3/uL (3.4-10)
[2016-12-22 07:35] LABS: ANISOCYTOSIS 1+; VERIFY COUNTS? YES
[2016-12-22 07:36] LABS: HYPOCHROMIA 1+
[2016-12-22 07:55] VITALS: BP 134/80
[2016-12-22] MEDS: CEFTRIAXONE PMX 1GM/50ML 50 ML IV SCH (08:21)
[2016-12-22] MEDS: INSULIN ASPART 100 UNITS/ML, PEN SQ-INSULIN SCH ×4 (08:22→21:10)
[2016-12-22] MEDS: SODIUM CHLORIDE FLUSH 10ML SYR IVF SCH ×3 (08:22→23:22)
[2016-12-22] MEDS: ASPIRIN 81 MG TABLET EC PO SCH (08:22)
[2016-12-22] MEDS: CHOLECALCIFEROL 1,000 UNIT TABLET PO SCH (08:23)
[2016-12-22 14:40] VITALS: BP 146/70
[2016-12-22] MEDS ORDERED: BISACODYL 5 MG EC TABLET PO PRN (15:00)
[2016-12-22 18:52] VITALS: BP 155/80
[2016-12-23 02:16] VITALS: BP 132/74
[2016-12-23] MEDS: HEPARIN 5,000 UNITS/ML, 1ML SQ SCH ×2 (06:31→16:49)
[2016-12-23 06:50] VITALS: BP 157/83
[2016-12-23 07:13] LABS: ASPARTATE AMINO TRANSFERASE 11 U/L (15-37); BLOOD UREA NITROGEN 13 mg/dL (7-18)
[2016-12-23 07:14] LABS: HEMATOCRIT 23.5 % (34.6-47.8); HEMOGLOBIN 7.9 g/dL (11.7-16.4)
[2016-12-23] MEDS: CEFTRIAXONE PMX 1GM/50ML 50 ML IV SCH (08:08)
[2016-12-23] MEDS: INSULIN ASPART 100 UNITS/ML, PEN SQ-INSULIN SCH ×4 (08:08→21:42)
[2016-12-23] MEDS: CHOLECALCIFEROL 1,000 UNIT TABLET PO SCH (09:00)
[2016-12-23] MEDS: ASPIRIN 81 MG TABLET EC PO SCH (09:00)
[2016-12-23] MEDS: SODIUM CHLORIDE FLUSH 10ML SYR IVF SCH ×2 (09:00→21:38)
[2016-12-23] MEDS: SODIUM CHLORIDE 0.9% 1,000 ML IV SCH ×2 (10:20→21:37)
[2016-12-23 14:14] VITALS: BP 153/79
[2016-12-23 20:03] VITALS: BP 152/80
[2016-12-23] MEDS: INSULIN DETEMIR 100 UNITS/ML, PEN SQ-INSULIN SCH (21:40)
[2016-12-24 01:32] VITALS: BP 149/78
[2016-12-24] MEDS: HEPARIN 5,000 UNITS/ML, 1ML SQ SCH ×3 (01:32→16:39)
[2016-12-24 04:57] LABS: HEMATOCRIT 24.1 % (34.6-47.8); WHITE BLOOD COUNT 7.7 x10^3/uL (3.4-10)
[2016-12-24 05:05] LABS: BLOOD UREA NITROGEN 15 mg/dL (7-18)
[2016-12-24] MEDS: SODIUM CHLORIDE 0.9% 1,000 ML IV SCH (06:28)
[2016-12-24] MEDS: CEFTRIAXONE PMX 1GM/50ML 50 ML IV SCH (08:29)
[2016-12-24] MEDS: ASPIRIN 81 MG TABLET EC PO SCH (08:30)
[2016-12-24] MEDS: CHOLECALCIFEROL 1,000 UNIT TABLET PO SCH (08:31)
[2016-12-24] MEDS: INSULIN DETEMIR 100 UNITS/ML, PEN SQ-INSULIN SCH (08:40)
[2016-12-24] MEDS: SODIUM CHLORIDE FLUSH 10ML SYR IVF SCH ×2 (08:41→21:36)
[2016-12-24] MEDS: INSULIN ASPART 100 UNITS/ML, PEN SQ-INSULIN SCH ×4 (08:41→21:34)
[2016-12-24 08:45] VITALS: BP 176/77
[2016-12-24] MEDS ORDERED: REGADENOSON 0.4 MG/5 ML SYRINGE ONE (08:48)
[2016-12-24 15:56] VITALS: BP 163/76
[2016-12-24] MEDS ORDERED: ONDANSETRON 2MG/ML, 2ML IVPush PRN (19:30)
[2016-12-24] MEDS ORDERED: BISACODYL 10 MG SUPP PR PRN (19:30)
[2016-12-24] MEDS ORDERED: DEXTROSE 50%, 50ML SYRINGE IVPush PRN (19:30)
[2016-12-24] MEDS ORDERED: GLUCAGON 1 MG IM PRN (19:30)
[2016-12-24] MEDS ORDERED: SODIUM CHLORIDE 0.9% 1,000 ML IV SCH (19:30)
[2016-12-24] MEDS ORDERED: DEXTROSE 4 GM TAB.CHEW PO PRN (19:30)
[2016-12-24 19:58] VITALS: BP 143/78
[2016-12-24 19:59] VITALS: BP 143/78
[2016-12-25] MEDS: HEPARIN 5,000 UNITS/ML, 1ML SQ SCH ×3 (01:14→17:50)
[2016-12-25 01:18] VITALS: BP 159/75
[2016-12-25 05:22] LABS: HEMATOCRIT 23.2 % (34.6-47.8); HEMOGLOBIN 7.7 g/dL (11.7-16.4); WHITE BLOOD COUNT 8.1 x10^3/uL (3.4-10)
[2016-12-25 05:46] LABS: BLOOD UREA NITROGEN 16 mg/dL (7-18)
[2016-12-25] MEDS: INSULIN ASPART 100 UNITS/ML, PEN SQ-INSULIN SCH ×4 (07:27→21:34)
[2016-12-25 08:04] VITALS: BP 165/79
[2016-12-25] MEDS: CEFTRIAXONE PMX 1GM/50ML 50 ML IV SCH (08:06)
[2016-12-25] MEDS: CHOLECALCIFEROL 1,000 UNIT TABLET PO SCH (09:13)
[2016-12-25] MEDS: ASPIRIN 81 MG TABLET EC PO SCH (09:13)
[2016-12-25] MEDS: INSULIN DETEMIR 100 UNITS/ML, PEN SQ-INSULIN SCH (09:14)
[2016-12-25] MEDS: SODIUM CHLORIDE FLUSH 10ML SYR IVF SCH ×2 (09:15→21:00)
[2016-12-25 13:56] VITALS: BP 126/74
[2016-12-25 20:28] VITALS: BP 151/79
[2016-12-26 02:55] VITALS: BP 157/79
[2016-12-26] MEDS: CEFTRIAXONE PMX 1GM/50ML 50 ML IV SCH (06:17)
[2016-12-26] MEDS: HEPARIN 5,000 UNITS/ML, 1ML SQ SCH ×3 (06:18→20:53)
[2016-12-26 07:34] VITALS: BP 165/76
[2016-12-26] MEDS: ASPIRIN 81 MG TABLET EC PO SCH (08:03)
[2016-12-26] MEDS: CHOLECALCIFEROL 1,000 UNIT TABLET PO SCH (08:03)
[2016-12-26] MEDS: SODIUM CHLORIDE FLUSH 10ML SYR IVF SCH ×2 (08:03→20:53)
[2016-12-26] MEDS: INSULIN DETEMIR 100 UNITS/ML, PEN SQ-INSULIN SCH (08:04)
[2016-12-26] MEDS: INSULIN ASPART 100 UNITS/ML, PEN SQ-INSULIN SCH ×4 (08:04→20:53)
[2016-12-26 14:03] VITALS: BP 136/71
[2016-12-26 20:00] VITALS: BP 163/75
[2016-12-27 04:49] VITALS: BP 131/73
[2016-12-27] MEDS: HEPARIN 5,000 UNITS/ML, 1ML SQ SCH ×2 (04:49→15:03)
[2016-12-27 05:52] LABS: HEMATOCRIT 23.3 % (34.6-47.8); HEMOGLOBIN 7.7 g/dL (11.7-16.4); WHITE BLOOD COUNT 7.8 x10^3/uL (3.4-10)
[2016-12-27 06:04] LABS: BLOOD UREA NITROGEN 17 mg/dL (7-18)
[2016-12-27] MEDS: CEFTRIAXONE PMX 1GM/50ML 50 ML IV SCH (06:38)
[2016-12-27 07:38] VITALS: BP 135/68
[2016-12-27] MEDS: SODIUM CHLORIDE FLUSH 10ML SYR IVF SCH (07:54)
[2016-12-27] MEDS: ASPIRIN 81 MG TABLET EC PO SCH (07:54)
[2016-12-27] MEDS: CHOLECALCIFEROL 1,000 UNIT TABLET PO SCH (07:54)
[2016-12-27] MEDS: INSULIN DETEMIR 100 UNITS/ML, PEN SQ-INSULIN SCH (07:55)
[2016-12-27] MEDS: INSULIN ASPART 100 UNITS/ML, PEN SQ-INSULIN SCH ×3 (07:56→15:50)
[2016-12-27 13:35] VITALS: BP 130/65
[2016-12-27] MEDS ORDERED: FLUCONAZOLE 200 MG TABLET PO SCH (14:30)
[2016-12-27] MEDS ORDERED: CEFT1FRO2 IV (14:38)
[2016-12-27] MEDS ORDERED: FLUC200T PO (14:38)
== END 2016-12-27 16:05 | disposition home health service (06) | DRG 871 ==
LOC: ED 11:12 → EDIP 11:13 → ED 11:30 → 4WST 13:27 → CCU 18:44 → 4NOR 12-21 15:56
PROVIDERS: ADMIT Internal Medicine; ATTEND Family Medicine
PROC: 0T9B70Z Drainage of Bladder with Drainage Device, Via Natural or Artificial Opening (ICD-10-PCS; 2016-12-19)
PROC: 0T9B70Z Drainage of Bladder with Drainage Device, Via Natural or Artificial Opening (ICD-10-PCS; 2016-12-20)
PROC: 0T9B70Z Drainage of Bladder with Drainage Device, Via Natural or Artificial Opening (ICD-10-PCS; 2016-12-25)
PROC: 02HV33Z Insertion of Infusion Device into Superior Vena Cava, Percutaneous Approach (ICD-10-PCS; principal; 2016-12-26)
PROC: B548ZZA Ultrasonography of Superior Vena Cava, Guidance (ICD-10-PCS; 2016-12-26)
DX: A41.59 Other Gram-negative sepsis (principal); N17.0 Acute kidney failure with tubular necrosis; R65.21 Severe sepsis with septic shock; E87.2 Acidosis; J18.9 Pneumonia, unspecified organism; B49 Unspecified mycosis; E11.65 Type 2 diabetes mellitus with hyperglycemia; I11.9 Hypertensive heart disease without heart failure; E86.1 Hypovolemia; E87.1 Hypo-osmolality and hyponatremia; D63.8 Anemia in other chronic diseases classified elsewhere; B96.1 Klebsiella pneumoniae [K. pneumoniae] as the cause of diseases classified elsewhere; E78.5 Hyperlipidemia, unspecified; E87.5 Hyperkalemia; F10.21 Alcohol dependence, in remission; H91.91 Unspecified hearing loss, right ear; N30.90 Cystitis, unspecified without hematuria; N81.4 Uterovaginal prolapse, unspecified; N95.0 Postmenopausal bleeding; J30.2 Other seasonal allergic rhinitis; Z96.652 Presence of left artificial knee joint; Z79.4 Long term (current) use of insulin; Z82.49 Family history of ischemic heart disease and other diseases of the circulatory system; Z87.440 Personal history of urinary (tract) infections; Z87.891 Personal history of nicotine dependence; Z90.710 Acquired absence of both cervix and uterus
CPT/HCPCS: 36415; 36569; 71010; 74176; 76770; 76937; 77001; 78452; 80048; 80053; 81001; 82010; 82533; 82803; 82962; 83605; 83735; 84100; 84145; 84443; 84484; 85025; 87040; 87077; 87081; 87086; 87106; 87186; 93005; 93017; 96365; J0696; J1644; J1815; J2405; J2543; J2785; J3370; A9502; C1751; C9898; J2370; J7030; J7040; J7050

== ENCOUNTER → 2017-04-17 | Outpatient (CLI) | payer MEDICARE, OTHER ==
[~2017-04-17] MED LIST changes: +ATOR-2 PO; -ATOR80TA75 PO; +CEFT1FRO2 IV; +FUROSEMIDE 20 MG/2 ML ONE
== END | disposition home or self-care (01) ==
LOC: PETCFH 09:59
PROVIDERS: ATTEND Physician Assistant Surgical
DX: N13.30 Unspecified hydronephrosis (principal); N20.1 Calculus of ureter
CPT/HCPCS: 78708; A9562; J1940

== ENCOUNTER → 2019-04-01 | Outpatient (CLI) | payer MEDICARE, OTHER ==
[~2019-04-01] MED LIST changes: -ASPI-621 PO; +ASPI81TA45 PO; -FUROSEMIDE 20 MG/2 ML ONE; +METF500T17 PO; -METF500T4 PO; -PIOG15TA2 PO; +PIOG15TA66 PO; +REGADENOSON 0.4 MG/5 ML SYRINGE ONE
== END | disposition home or self-care (01) ==
LOC: CFH 07:27
PROVIDERS: ATTEND Internal Medicine Cardiovascular Disease
DX: I08.0 Rheumatic disorders of both mitral and aortic valves (principal); I25.10 Atherosclerotic heart disease of native coronary artery without angina pectoris; I10 Essential (primary) hypertension
CPT/HCPCS: 78452; 93017; 93306; A9502; J2785

== ENCOUNTER → 2020-03-30 | Outpatient (CLI) | payer MEDICARE, OTHER ==
[~2020-03-30] MED LIST changes: +ASCO500T93 PO; +CANA100T PO; +CARB15DR3 EACHEYE; -CETI10TA24 PO; +CETI10TA76 PO; +IRON PO; +LIRA0.6P SC; +LOSA50TA14 PO; +PIOG45TA63 PO; -REGADENOSON 0.4 MG/5 ML SYRINGE ONE; +TURM500C4 PO; +[UNRECOGNIZED DRUG - OTHER] PO
[2020-03-30 10:23] LABS: BASOPHILS % (AUTO) 1 % (0-1); EOSINOPHILS % (AUTO) 3 % (1-7); LYMPHOCYTES % (AUTO) 37 % (22-44); MEAN CORPUSCULAR HEMOGLOBIN 31.1 pg (27.0-34.8); MEAN CORPUSCULAR HGB CONC 32.8 g/dL (32.4-35.8); MONOCYTES % (AUTO) 8 % (2-9); NEUTROPHILS % (AUTO) 51 % (42-75); PLATELET COUNT 234 x10^3/uL (130-400); RED BLOOD COUNT 3.31 x10^6/uL (3.82-5.3); RED CELL DISTRIBUTION WIDTH 14.7 % (9.6-15.2)
[2020-03-30 10:31] LABS: MD NO
[2020-03-30 10:35] LABS: ALANINE AMINOTRANSFERASE 14 U/L (12-78); ALBUMIN 3.7 g/dL (3.4-5.0); ANION GAP 4 mmol/L (5-15); CALCIUM 9.6 mg/dL (8.5-10.1); CHLORIDE 112 mmol/L (98-107); CREATININE 1.73 mg/dL (0.55-1.02)
[2020-03-30 10:37] LABS: ALKALINE PHOSPHATASE 35 U/L (45-117); BILIRUBIN,TOTAL 0.5 mg/dL (0.2-1.0); TOTAL PROTEIN 7.7 g/dL (6.4-8.2)
== END | disposition home or self-care (01) ==
LOC: STAR 08:31
PROVIDERS: ATTEND Surgery
DX: Z01.818 Encounter for other preprocedural examination (principal); I45.10 Unspecified right bundle-branch block; Z20.828 Contact with and (suspected) exposure to other viral communicable diseases
CPT/HCPCS: 36415; 71046; 80053; 85025; 87635; 93005

== ENCOUNTER → 2020-03-30 | Outpatient (CLI) | payer MEDICARE, OTHER ==
[2020-03-30 10:23] LABS: MICROSCOPIC INDICATED
== END | disposition home or self-care (01) ==
LOC: LAB 09:51
PROVIDERS: ATTEND Internal Medicine Nephrology
DX: N18.30 Chronic kidney disease, stage 3 unspecified (principal); D63.1 Anemia in chronic kidney disease; R80.9 Proteinuria, unspecified; E61.1 Iron deficiency; N39.0 Urinary tract infection, site not specified
CPT/HCPCS: 36415; 81001; 82043; 82306; 82570; 82728; 83540; 83550; 84100; 84156; 87077; 87086; 87186